=== PATIENT | female | born 1990 | race Caucasian/White ===

== ENCOUNTER 2019-03-02 10:56 | Emergency (ER) | payer MEDICAID ==
[~2019-03-02] VITALS: Ht 152.4 cm; Wt 61.0 kg
[2019-03-02] MEDS ORDERED: DIPHENHYDRAMINE 50MG/ML VIAL IV ONE (12:00)
[2019-03-02] MEDS ORDERED: ACETAMINOPHEN 325MG TABLET PO ONE (12:00)
[2019-03-02] MEDS ORDERED: PYRIDOXINE HCL 50MG TABLET PO ONE (12:00)
[2019-03-02] MEDS ORDERED: DEXT 5%/0.9% NACL 1,000 ML IV ONE ×2 (12:00→15:00)
[2019-03-02] MEDS ORDERED: ONDANSETRON HCL 4MG/2ML INJ IV ONE (12:00)
[2019-03-02] MEDS ORDERED: FAMOTIDINE 20MG/2ML VIAL IV ONE (12:00)
[2019-03-02 12:10] LABS: CLARITY URINE CLEAR (CLEAR); COLOR URINE YELLOW (YELLOW); KETONES URINE 4+ (NEGATIVE); LEUKOCYTE ESTERASE URINE NEGATIVE (NEGATIVE); NITRITE URINE NEGATIVE (NEGATIVE); OCCULT BLOOD URINE NEGATIVE (NEGATIVE); PROTEIN URINE 1+ (NEGATIVE); SPECIFIC GRAVITY URINE 1.031 (1.005-1.030); UROBILINOGEN URINE 0.2 E.U./dL (0.2-1.0)
[2019-03-02 14:16] LABS: CHLORIDE 105 mEq/L (98-107)
[2019-03-02 14:17] LABS: HCG SCREEN POSITIVE
[2019-03-02 14:23] LABS: HEMATOCRIT. 40.1 % (36.0-48.0); MEAN CORPUSCULAR HEMOGLOBIN 31.7 pg (28.0-32.0); MEAN CORPUSCULAR VOLUME 91.2 fL (81.0-99.0); MEAN PLATELET VOLUME 8.3 fl (7.4-10.4); PLATELET 279 x1000/uL (130-400); RED CELL DISTRIBUTION WIDTH 13.8 % (11.6-14.6)
[2019-03-02] MEDS ORDERED: PROMETHAZINE HCL 25MG TABLET PO PRN (15:00)
[2019-03-02 15:14] LABS: PLATELET ESTIMATE NORMAL
[2019-03-02 16:18] VITALS: BP 114/70
== END 2019-03-02 16:31 | disposition home or self-care (01) ==
LOC: ER 11:46
DX: O99.612 Diseases of the digestive system complicating pregnancy, second trimester (principal); K80.20 Calculus of gallbladder without cholecystitis without obstruction; O21.8 Other vomiting complicating pregnancy; O99.282 Endocrine, nutritional and metabolic diseases complicating pregnancy, second trimester; E88.89 Other specified metabolic disorders; Z3A.14 14 weeks gestation of pregnancy
CPT/HCPCS: 36415; 76705; 76801; 76817; 80053; 81003; 81025; 83690; 84703; 85025; 96361; 96374; 96375; 99284; J1200; J2405; J3490; J7042; Z7610

== ENCOUNTER 2019-08-05 20:02 | Emergency (ER) | payer MEDICAID ==
[~2019-08-05] VITALS: Ht 149.9 cm; Wt 69.0 kg
[2019-08-05] MEDS ORDERED: AMOXICILLIN 500 MG CAPSULE PO ONE (21:00)
[2019-08-05] MEDS ORDERED: ACETAMINOPHEN 500MG TABLET PO ONE (21:00)
[2019-08-05 21:23] VITALS: BP 132/73
== END 2019-08-05 21:24 | disposition home or self-care (01) ==
LOC: ER 20:07
DX: K04.7 Periapical abscess without sinus (principal); R68.84 Jaw pain
CPT/HCPCS: 99283